=== PATIENT | female | born 1965 ===

== ENCOUNTER 2018-01-29 19:16 | Emergency (ER) | payer OTHER ==
[2018-01-29 19:31] VITALS: BP 120/70; PULSE 69; RESP 18; TEMP 98.6; O2SAT 97
[2018-01-29] MEDS ORDERED: Oxycodone/Acetaminophen 5/325 mg Tab PO ONE (20:25)
--- NOTE | 2018-01-29 22:32 | ED PDOC ---
HPI: Back Time Seen by Provider: 01/29/18 19:55 Chief Complaint (Nursing): Back Pain Chief Complaint (Provider): Back Pain History Per: Patient History/Exam Limitations: no limitations Onset/Duration Of Symptoms: Days Current Symptoms Are (Timing): Still Present Previous Symptoms: Back Pain Additional Complaint(s): 52 y/o female presents to the ED complaining of severe lower back pain that radiates down the right leg. Patient reports of taking Ibuprofen with no relief. Patient also reports of similar pain in the past. Denies difficulty urinating, abdominal pain and fever. PMD: Dr. Dewitt Past Medical History Reviewed: Historical Data, Nursing Documentation, Vital Signs Vital Signs: Last Vital Signs Temp 98.6 F 01/29/18 19:26 Pulse 69 01/29/18 19:26 Resp 18 01/29/18 19:26 BP 120/70 01/29/18 19:26 Pulse Ox 97 01/29/18 19:26 - Medical History PMH: No Chronic Diseases, Gastritis - Surgical History Surgical History: No Surg Hx - Family History Family History: States: Unknown Family Hx - Home Medications Home Medications: Ambulatory Orders Medication Instructions Recorded Methylprednisolone [Medrol Dose 4 mg PO ASDIR #21 mg 01/29/18 Pack (21 tabs)] oxyCODONE/Acetaminophen [Percocet 1 ea PO Q6 PRN #12 tab 01/29/18 5/325 mg Tab] - Allergies Allergies/Adverse Reactions: Allergies Allergy/AdvReac Type Severity Reaction Status Date / Time No Known Allergies Allergy Verified 01/29/18 19:26 Review of Systems ROS Statement: Except As Marked, All Systems Reviewed And Found Negative Constitutional: Negative for: Fever Gastrointestinal: Negative for: Abdominal Pain Genitourinary Female: Negative for: Dysuria, Hematuria Musculoskeletal: Positive for: Back Pain (lower), Leg Pain (right) Physical Exam - Reviewed Nursing Documentation Reviewed: Yes Vital Signs Reviewed: Yes - Physical Exam Appears: Positive for: Non-toxic, No Acute Distress Head Exam: Positive for: ATRAUMATIC Skin: Positive for: Normal Color, Warm, Dry Eye Exam: Positive for: Normal appearance, EOMI, PERRL ENT: Positive for: Normal ENT Inspection Neck: Positive for: Normal, Painless ROM, Supple Cardiovascular/Chest: Positive for: Regular Rate, Rhythm. Negative for: Murmur Respiratory: Positive for: Normal Breath Sounds. Negative for: Respiratory Distress Gastrointestinal/Abdominal: Positive for: Normal Exam, Soft. Negative for: Tenderness Back: Positive for: Normal Inspection, Other (Right paraspinal lumbar tenderness. Negative straight leg raise) Extremity: Positive for: Normal ROM. Negative for: Pedal Edema, Deformity Neurologic/Psych: Positive for: Alert, Oriented (x3). Negative for: Motor/ Sensory Deficits - ECG O2 Sat by Pulse Oximetry: 97 (RA) Pulse Ox Interpretation: Normal Medical Decision Making Medical Decision Making: Time: 2031 Impression: Low back pain Differentials include but not limited to sciatica and lumbar radiculopathy Plan: -- Glucose, POc -- Toradol 30 mg IM -- Accucheck -- Percocet 5/325 mg 1 Tab PO Time: 2131 -- On re-evaluation, patient reports feeling better and significantly improved. Patient is now stable for discharge. Patient is instructed to follow up with PMD in 1 - 2 days without fail. Scribe Attestation: Documented by Nayeli Crook acting as a scribe for Dr. Georges Champagne MD. Provider Scribe Attestation: All medical record entries made by the Scribe were at my direction and personally dictated by me. I have reviewed the chart and agree that the record accurately reflects my personal performance of the history, physical exam, medical decision making, and the department course for this patient. I have also personally directed, reviewed, and agree with the discharge instructions and disposition. Disposition - Clinical Impression Clinical Impression: Sciatica - Patient ED Disposition Is Patient to be Admitted: No Doctor Will See Patient In The: Office Counseled Patient/Family Regarding: Studies Performed, Diagnosis, Need For Followup - Disposition Referrals: Maxi Dewitt [Staff Provider] - Disposition: Routine/Home Disposition Time: 21:30 Condition: GOOD Additional Instructions: Take your medications as instructed. Follow up with your PCP in 2-3 days. Prescriptions: Methylprednisolone [Medrol Dose Pack (21 tabs)] 4 mg PO ASDIR #21 mg oxyCODONE/Acetaminophen [Percocet 5/325 mg Tab] 1 ea PO Q6 PRN #12 tab PRN Reason: Pain, Severe (8-10) Instructions: Sciatica (DC) Print Language: DIVEHI
== END 2018-01-29 23:24 | disposition home or self-care (01) ==
LOC: H.ER 19:16
DX: M54.31 Sciatica, right side (principal)
CPT/HCPCS: 81025; 82948; 96372; 99283; J1885

== ENCOUNTER 2018-07-12 09:55 | Emergency (ER) | payer OTHER ==
[2018-07-12 10:03] VITALS: BMI 29.2
--- NOTE | 2018-07-12 11:15 | ED PDOC ---
HPI: General Adult Time Seen by Provider: 07/12/18 11:14 Chief Complaint (Nursing): Back Pain Chief Complaint (Provider): abdominal pain/back pain History Per: Patient (52 y/o female with ongoing back pain worse with movement noted today with abdominal pain. Denies any dysuria. NOtes blood in stools intermittently associated with her hemorrhoids.) Past Medical History Reviewed: Historical Data, Nursing Documentation, Vital Signs Vital Signs: Last Vital Signs Temp 99.7 F H 07/12/18 10:03 Pulse 71 07/12/18 10:03 Resp 17 07/12/18 10:03 BP 140/80 07/12/18 10:03 Pulse Ox 97 07/12/18 10:03 - Medical History PMH: Gastritis - Family History Family History: States: Unknown Family Hx - Home Medications Home Medications: Ambulatory Orders Medication Instructions Recorded Methylprednisolone [Medrol Dose 4 mg PO ASDIR #21 mg 01/29/18 Pack (21 tabs)] oxyCODONE/Acetaminophen [Percocet 1 ea PO Q6 PRN #12 tab 01/29/18 5/325 mg Tab] Naproxen 375 mg PO Q8 PRN #21 tablet 07/12/18 diaZEpam [Valium] 5 mg PO Q8 PRN #2 tab 07/12/18 - Allergies Allergies/Adverse Reactions: Allergies Allergy/AdvReac Type Severity Reaction Status Date / Time No Known Allergies Allergy Verified 01/29/18 19:26 Review of Systems ROS Statement: Except As Marked, All Systems Reviewed And Found Negative Physical Exam - Reviewed Nursing Documentation Reviewed: Yes Vital Signs Reviewed: Yes - Physical Exam Appears: Positive for: Well, Non-toxic, No Acute Distress Head Exam: Positive for: ATRAUMATIC, NORMAL INSPECTION, NORMOCEPHALIC Skin: Positive for: Normal Color, Warm, DRY Eye Exam: Positive for: EOMI, Normal appearance, PERRL ENT: Positive for: Normal ENT Inspection Neck: Positive for: Normal, Painless ROM Cardiovascular/Chest: Positive for: Regular Rate, Rhythm Respiratory: Positive for: CNT, Normal Breath Sounds Gastrointestinal/Abdominal: Positive for: Normal Exam, Soft Back: Positive for: Normal Inspection, Other (paralumbar tenderness right sided noted.) Extremity: Positive for: Normal ROM Neurologic/Psych: Positive for: Alert, Oriented - Laboratory Results Result Diagrams: 07/12/18 11:20 07/12/18 11:20 Urine POC: Negative - ECG O2 Sat by Pulse Oximetry: 97 - Progress ED Course And Treament: TORADOL 30 MG IM X 1 DOSE Disposition - Clinical Impression Clinical Impression: Back strain - Patient ED Disposition Is Patient to be Admitted: No - Disposition Disposition: Routine/Home Disposition Time: 12:32 Condition: FAIR Prescriptions: diaZEpam [Valium] 5 mg PO Q8 PRN #2 tab PRN Reason: Muscle Spasm Naproxen 375 mg PO Q8 PRN #21 tablet PRN Reason: Pain, Moderate (4-7) Instructions: Low Back Pain (DC) Forms: [facility] ED School/Work Excuse Print Language: CITIZEN OF [place]
[2018-07-12 11:39] LABS: BASO # 0.1 K/uL (0.0-0.2); BASO % 0.9 % (0.0-2.0); EOS # 0.2 K/uL (0.0-0.7); EOS % 2.2 % (0.0-4.0); HEMOGLOBIN 13.5 g/dL (12.0-16.0); LYMPH # 2.3 K/uL (1.0-4.3); LYMPH % 27.7 % (20.0-40.0); MEAN CELL VOLUME 88.5 fl (81.0-99.0); MEAN CORPUSCULAR HEMOGLOBIN 29.8 pg (27.0-31.0); MEAN CORPUSCULAR HGB CONC 33.7 g/dL (33.0-37.0); MEAN PLATELET VOLUME 8.1 fl (7.2-11.7); MONO # 0.4 K/uL (0.0-0.8); MONO % 4.3 % (0.0-10.0); NEUT # 5.3 K/uL (1.8-7.0); NEUT % 64.9 % (50.0-75.0); NRBC % 0.1 % (0.0-0.0); RBC 4.53 Mil/uL (3.80-5.20); RED CELL DISTRIBUTION WIDTH 12.7 % (11.5-14.5); WHITE BLOOD COUNT 8.2 K/uL (4.8-10.8)
[2018-07-12 11:41] LABS: SQUAMOUS EPITHIAL < 1 /hpf (0-5); URINE BILIRUBIN NEGATIVE (NEGATIVE); URINE BLOOD NEGATIVE (NEGATIVE); URINE CLARITY CLEAR (Clear); URINE COLOR STRAW (YELLOW); URINE GLUCOSE (UA) NEG (NEGATIVE); URINE LEUKOCYTE ESTERASE NEG Leu/uL (Negative); URINE PROTEIN NEGATIVE (NEGATIVE); URINE UROBILINOGEN 0.2-1.0 mg/dL (0.2-1.0)
[2018-07-12 11:58] LABS: ALB/GLOB RATIO 1.2 (1.0-2.1); ALBUMIN 4.2 g/dL (3.5-5.0); ALT/SGPT 27 U/L (9-52); AST/SGOT 25 U/L (14-36); BLOOD UREA NITROGEN 13 mg/dl (7-17); CALCIUM 9.2 mg/dL (8.4-10.2); GFR NON-AFRICAN AMERICAN > 60; LIPASE 89 U/L (23-300)
[2018-07-12 13:22] VITALS: BP 128/76; PULSE 78; RESP 19; TEMP 97.5; O2SAT 98
== END 2018-07-12 13:22 | disposition home or self-care (01) ==
LOC: H.ER 09:55
DX: S39.012A Strain of muscle, fascia and tendon of lower back, initial encounter (principal); X58.XXXA Exposure to other specified factors, initial encounter
CPT/HCPCS: 80053; 81003; 83690; 85025; 87086; 96372; 99282; J1885